=== PATIENT | female | born 1995 | race Hispanic/Latino ===

== ENCOUNTER 2018-04-21 12:35 | Emergency (ER) | payer OTHER ==
[2018-04-21 13:02] VITALS: TEMP 98.6
[2018-04-21] MEDS ORDERED: Tdap Vaccine 0.5 ml Vial (10-64 yrs) IM ONE ×2 (13:38→14:11)
[2018-04-21] MEDS ORDERED: Bacitracin OINT 15GM TOP STA (13:38)
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
[2018-04-21 14:51] VITALS: BP 115/79; PULSE 79; RESP 17; O2SAT 100
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
== END 2018-04-21 14:51 | disposition home or self-care (01) ==
LOC: H.ER 12:35
DX: S09.90XA Unspecified injury of head, initial encounter (principal); S00.83XA Contusion of other part of head, initial encounter; S40.811A Abrasion of right upper arm, initial encounter; S63.602A Unspecified sprain of left thumb, initial encounter; V43.52XA Car driver injured in collision with other type car in traffic accident, initial encounter; Y92.410 Unspecified street and highway as the place of occurrence of the external cause